=== PATIENT | female | born 1965 | race Caucasian/White ===

== ENCOUNTER 2016-01-01 14:19 | Outpatient (RCR) | payer MEDICARE, OTHER ==
--- OUTSIDE RECORDS SUMMARY | 2016-01-01 14:26 | XMS REPORT | Continuity of Care Document ---
Author Author [facility] Organization [facility] Address Unknown Phone Unavailable Care Team Providers Care Item Repair Manager Name Role Phone PCP Unavailable Source Comments Some departments are not documenting in the electronic medical record. If you do not see the information that you expected, contact Release of Information in the Health Information Management department at [phone] for further assistance in locating additional records.[facility] Active Allergies and Adverse Reactions Allergen Noted Date Severity Reactions Comments Acetaminophen 12/03/2013 HIVES, ITCHING Current Medications Prescription Sig. Disp. Refills Start End Date Status Date levothyroxine (SYNTHROID) Take 75 mcg by mouth Active 75 mcg tablet daily. metroNIDAZOLE (FLAGYL) Take 250 mg by mouth Active 250 mg tablet twice daily. estrogens, conjugated(+) half a gram per vagina 1 Container 11 Active (PREMARIN) 0.625 mg/g daily x 2 weeks then 14 vaginal cream twice per week thereafter Active Problems Problem Noted Date Myofascial pain 12/03/2013 Last Assessment & Plan: evidence of significant myofascial pain noted reproducible on exam in the same areas reported by patient to be the source of her pain impeding intercourse - PLAN discussed the findings and advised PT. offered the patient in city option and advised that she may want to try something closer to home if there is any group that does pelvic pt close by. referral given may consider referral to the pain center for possible injections if the PT does not adequately relieve her discomfort DADA (stress urinary incontinence, female) 12/03/2013 Last Assessment & Plan: had prior sling unable to identify any mesh exposure visible to the naked eye type unknown records not available leaked on [employer] in [employer] today / full bladder only - PLAN sign release of information need for cysto and uros prior to any surgical procedure Social History Tobacco Use Types Packs/Day Years Used Date Former Smoker Alcohol Use Drinks/Week oz/Week Comments Yes Last Filed Vital Signs Vital Sign Reading Time Taken Blood Pressure 115/79 12/03/2013 2:21 PM CDT Pulse 88 12/03/2013 2:21 PM CDT Temperature - - Respiratory Rate - - Height 1.651 m (5' 5") 12/03/2013 2:21 PM CDT Weight 102.513 kg (226 lb) 12/03/2013 2:21 PM CDT Body Mass Index 37.61 12/03/2013 2:21 PM CDT Oxygen Saturation - - Plan of Care Health Maintenance Due Date Last Done Comments Physical (Comprehensive) 1974 Exam Pertussis Vaccine 1978 Tetanus Vaccine 1984 Cervical Cancer Screening 1988 Breast Cancer Screening 2007 Influenza Vaccine 11/27/2015 Results from Last 3 Months Not on file
[2016-01-01 14:51] LABS: BASOPHILS % (AUTO) 0 % (0-10); EOSINOPHILS # (AUTO) 0.1 10^3/uL (0.0-0.3); EOSINOPHILS % (AUTO) 3 % (0-10); LYMPHOCYTES # (AUTO) 1.2 X 10^3 (1.0-4.0); LYMPHOCYTES % (AUTO) 31 % (12-44); MEAN CORPUSCULAR HEMOGLOBIN 31 PG (25-34); MEAN CORPUSCULAR HGB CONC 34 G/DL (32-36); MEAN CORPUSCULAR VOLUME 90 FL (80-99); MEAN PLATELET VOLUME 10.2 FL (7.4-10.4); MONOCYTES # (AUTO) 0.5 X 10^3 (0.0-1.0); MONOCYTES % (AUTO) 12 % (0-12); NEUTROPHILS # (AUTO) 2.1 X 10^3 (1.8-7.8); NEUTROPHILS % (AUTO) 53 % (42-75); PLATELET COUNT 79 10^3/uL (130-400); RED BLOOD COUNT 4.72 10^6/uL (4.35-5.85); RED CELL DISTRIBUTION WIDTH 13.7 % (10.0-14.5); WHITE BLOOD COUNT 3.9 10^3/uL (4.3-11.0)
[2016-01-01 15:25] LABS: INR 1.1 (0.8-1.4); PROTHROMBIN TIME PATIENT 13.6 SEC (12.2-14.7)
[2016-01-01 15:36] LABS: ALANINE AMINOTRANSFERASE 45 U/L (0-55); ALBUMIN 3.9 G/DL (3.2-4.5); ANION GAP 10 MMOL/L (5-14); ASPARTATE AMINO TRANSFERASE 41 U/L (5-34); BILIRUBIN,TOTAL 1.5 MG/DL (0.1-1.0); BLOOD UREA NITROGEN 14 MG/DL (7-18); BUN/CREATININE RATIO 18; CALCIUM 9.3 MG/DL (8.5-10.1); CARBON DIOXIDE 21 MMOL/L (21-32); CHLORIDE 110 MMOL/L (98-107); CREATININE SERUM 0.76 MG/DL (0.60-1.30); GFR ESTIMATED > 60; GLUCOSE 106 MG/DL (70-105); POTASSIUM 3.9 MMOL/L (3.6-5.0); SODIUM 141 MMOL/L (135-145); TOTAL PROTEIN 6.6 G/DL (6.4-8.2)
== END 2016-03-31 | disposition home or self-care (01) ==
LOC: ONC 14:19
PROVIDERS: ATTEND Internal Medicine Hematology & Oncology
DX: D69.6 Thrombocytopenia, unspecified (principal); D72.819 Decreased white blood cell count, unspecified; K76.9 Liver disease, unspecified; E03.9 Hypothyroidism, unspecified; Z79.899 Other long term (current) drug therapy
CPT/HCPCS: 36415; 80053; 82105; 85025; 85610; 99214